=== PATIENT | female | born 1990 | race Two or more races ===

== ENCOUNTER 2020-10-04 11:03 | Emergency (ER) | payer SELFPAY ==
[2020-10-04] MEDS ORDERED: Sodium Chloride 0.9% 1,000 ML IV ONE ×2 (11:27→13:57)
[2020-10-04] MEDS ORDERED: Ondansetron 4 MG/2 ML SDV IVPUSH ONE (11:27)
[2020-10-04] MEDS ORDERED: fentaNYL 50 MCG/ML SDV IVPUSH ONE (11:27)
--- NOTE | 2020-10-04 11:39 | EDM.PDOC ---
ED HPI GENERAL MEDICAL PROBLEM - General Chief Complaint: Abdominal Pain Stated Complaint: ABDOMINAL PAIN Time Seen by Provider: 10/04/20 11:04 Source of Information: Reports: Patient History Limitations: Reports: No Limitations - History of Present Illness INITIAL COMMENTS - FREE TEXT/NARRATIVE: Presents reporting acute abdominal pain since 8:49 this morning. Patient states she has had troubles with excessive abdominal gas in the past but it is usually relieved after taking Gas-X, Pepto-Bismol or chamomile tea. The patient did accomplish those measures today but her pain was not relieved. The pain is in the epigastric and left upper quadrant area radiating to the back and is accompanied by nausea. No vomiting, dysuria, fever. She does smoke cigarettes but denies any alcohol use. She states she is not sexually active and not on control. She did have a bowel movement this morning which was greenish but totally normal for her. Is otherwise healthy without chronic medical problems. abdominal Pain Score (Numeric/FACES): 10 - Related Data Allergies Allergy/AdvReac Type Severity Reaction Status Date / Time No Known Allergies Allergy Verified 10/04/20 11:14 Home Meds: Home Meds . [No Known Home Meds] 10/04/20 [History] Past Medical History - Past Health History Medical/Surgical History: Denies Medical/Surgical History - Infectious Disease History Infectious Disease History: Reports: Chicken Pox Social & Family History - Family History Family Medical History: No Pertinent Family History - Tobacco Use Tobacco Use Status *Q: Current Every Day Tobacco User Years of Tobacco use: 12 Packs/Tins Daily: 1 - Caffeine Use Caffeine Use: Reports: Energy Drinks - Recreational Drug Use Recreational Drug Use: No ED ROS GENERAL - Review of Systems Review Of Systems: Comprehensive ROS is negative, except as noted in HPI. ED EXAM, GI/ABD - Physical Exam Exam: See Below Exam Limited By: No Limitations General Appearance: Alert, No Apparent Distress Ears: Normal External Exam Nose: Normal Inspection Throat/Mouth: Normal Inspection Head: Atraumatic, Normocephalic Neck: Normal Inspection Respiratory/Chest: No Respiratory Distress, Lungs Clear, Normal Breath Sounds Cardiovascular: Normal Peripheral Pulses, Regular Rate, Rhythm, No Edema, No Murmur GI/Abdominal Exam: Soft, No Distention, Other (Tenderness epigastric and left upper quadrant) Back Exam: Normal Inspection Extremities: Normal Inspection Neurological: Alert, Oriented, Normal Cognition Psychiatric: Normal Affect, Normal Mood Skin Exam: Warm, Dry, Intact, Normal Color, No Rash Lymphatic: No Adenopathy Course - Vital Signs Last Recorded V/S: Last Vital Signs Temp 35.4 C L 10/04/20 11:14 Pulse 67 10/04/20 13:06 Resp 20 10/04/20 13:06 BP 134/76 10/04/20 13:06 Pulse Ox 100 10/04/20 13:06 - Orders/Labs/Meds Orders: Active Orders 24 hr Category Date Time Status Patient Status [ADT] Stat ADT 10/04/20 13:52 Ordered Abdomen Ltd [US] Stat Exams 10/04/20 13:50 Ordered CORONAVIRUS COVID-19 [facility] [[facility]] Stat Lab 10/04/20 13:37 Received Sodium Chloride 0.9% [Normal Saline] 1,000 ml Med 10/04/20 13:57 Ordered IV STAT Medication Orders Sodium Chloride (Normal Saline) 1,000 mls @ 999 mls/hr IV STAT ONE Stop: 10/04/20 14:57 Last Admin: 10/04/20 14:00 Dose: 999 mls/hr Documented by: NALINI Labs: Laboratory Tests 10/04/20 10/04/20 10/04/20 Range/Units 11:34 11:34 11:34 WBC 14.04 H (4.0-11.0) K/uL RBC 4.13 L (4.30-5.90) M/uL Hgb 12.1 (12.0-16.0) g/dL Hct 36.3 (36.0-46.0) % MCV 87.9 (80.0-98.0) fL MCH 29.3 (27.0-32.0) pg MCHC 33.3 (31.0-37.0) g/dL RDW Std Deviation 42.7 (28.0-62.0) fl RDW Coeff of Heather 13 (11.0-15.0) % Plt Count 389 (150-400) K/uL MPV 9.50 (7.40-12.00) fL Neut % (Auto) 76.5 (48.0-80.0) % Lymph % (Auto) 16.9 (16.0-40.0) % [place] % (Auto) 4.9 (0.0-15.0) % Eos % (Auto) 1.6 (0.0-7.0) % Baso % (Auto) 0.1 (0.0-1.5) % Neut # (Auto) 10.7 H (1.4-5.7) K/uL Lymph # (Auto) 2.4 (0.6-2.4) K/uL [place] # (Auto) 0.7 (0.0-0.8) K/uL Eos # (Auto) 0.2 (0.0-0.7) K/uL Baso # (Auto) 0.0 (0.0-0.1) K/uL Nucleated RBC % 0.0 /100WBC Nucleated RBCs # 0 K/uL Sodium 134 L (136-145) mmol/L Potassium 3.5 (3.5-5.1) mmol/L Chloride 100 (98-107) mmol/L Carbon Dioxide 13.8 L (21.0-32.0) mmol/L BUN 16 (7.0-18.0) mg/dL Creatinine 0.6 (0.6-1.0) mg/dL Est Cr Clr Drug Dosing 133.32 mL/min Estimated GFR (MDRD) > 60.0 ml/min Glucose 135 H (74-106) mg/dL Calcium 7.7 L (8.5-10.1) mg/dL Total Bilirubin 0.3 (0.2-1.0) mg/dL AST 23 (15-37) IU/L ALT 41 (14-63) IU/L Alkaline Phosphatase 60 (46-116) U/L Total Protein 7.6 (6.4-8.2) g/dL Albumin 3.4 (3.4-5.0) g/dL Globulin 4.2 H (2.6-4.0) g/dL Albumin/Globulin Ratio 0.8 L (0.9-1.6) Amylase (25-115) U/L Lipase 6603 H (73-393) U/L Urine Color Urine Appearance Urine pH (5.0-8.0) Ur Specific [place] (1.001-1.035) Urine Protein (NEGATIVE) mg/dL Urine Glucose (UA) (NEGATIVE) mg/dL Urine Ketones (NEGATIVE) mg/dL Urine Occult Blood (NEGATIVE) Urine Nitrite (NEGATIVE) Urine Bilirubin (NEGATIVE) Urine Urobilinogen (<2.0) EU/dL Ur Leukocyte Esterase (NEGATIVE) Urine RBC (0-2/HPF) Urine WBC (0-5/HPF) Ur Epithelial Cells (NONE-FEW) Urine Bacteria (NEGATIVE) Urine Mucus (NONE-MOD) Urine HCG, Qual (NEGATIVE) 10/04/20 10/04/20 10/04/20 Range/Units 11:34 12:23 12:23 WBC (4.0-11.0) K/uL RBC (4.30-5.90) M/uL Hgb (12.0-16.0) g/dL Hct (36.0-46.0) % MCV (80.0-98.0) fL MCH (27.0-32.0) pg MCHC (31.0-37.0) g/dL RDW Std Deviation (28.0-62.0) fl RDW Coeff of Heather (11.0-15.0) % Plt Count (150-400) K/uL MPV (7.40-12.00) fL Neut % (Auto) (48.0-80.0) % Lymph % (Auto) (16.0-40.0) % [place] % (Auto) (0.0-15.0) % Eos % (Auto) (0.0-7.0) % Baso % (Auto) (0.0-1.5) % Neut # (Auto) (1.4-5.7) K/uL Lymph # (Auto) (0.6-2.4) K/uL [place] # (Auto) (0.0-0.8) K/uL Eos # (Auto) (0.0-0.7) K/uL Baso # (Auto) (0.0-0.1) K/uL Nucleated RBC % /100WBC Nucleated RBCs # K/uL Sodium (136-145) mmol/L Potassium (3.5-5.1) mmol/L Chloride (98-107) mmol/L Carbon Dioxide (21.0-32.0) mmol/L BUN (7.0-18.0) mg/dL Creatinine (0.6-1.0) mg/dL Est Cr Clr Drug Dosing mL/min Estimated GFR (MDRD) ml/min Glucose (74-106) mg/dL Calcium (8.5-10.1) mg/dL Total Bilirubin (0.2-1.0) mg/dL AST (15-37) IU/L ALT (14-63) IU/L Alkaline Phosphatase (46-116) U/L Total Protein (6.4-8.2) g/dL Albumin (3.4-5.0) g/dL Globulin (2.6-4.0) g/dL Albumin/Globulin Ratio (0.9-1.6) Amylase 535 H (25-115) U/L Lipase (73-393) U/L Urine Color YELLOW Urine Appearance CLEAR Urine pH 5.5 (5.0-8.0) Ur Specific [place] 1.015 (1.001-1.035) Urine Protein NEGATIVE (NEGATIVE) mg/dL Urine Glucose (UA) NEGATIVE (NEGATIVE) mg/dL Urine Ketones NEGATIVE (NEGATIVE) mg/dL Urine Occult Blood SMALL H (NEGATIVE) Urine Nitrite NEGATIVE (NEGATIVE) Urine Bilirubin NEGATIVE (NEGATIVE) Urine Urobilinogen 0.2 (<2.0) EU/dL Ur Leukocyte Esterase NEGATIVE (NEGATIVE) Urine RBC 2-4 (0-2/HPF) Urine WBC 0-1 (0-5/HPF) Ur Epithelial Cells RARE (NONE-FEW) Urine Bacteria RARE (NEGATIVE) Urine Mucus RARE (NONE-MOD) Urine HCG, Qual NEGATIVE (NEGATIVE) Meds: Medications Generic Name Dose Route Start Last Admin Trade Name Freq PRN Reason Stop Dose Admin Sodium Chloride 1,000 mls @ 999 mls/hr 10/04/20 13:57 10/04/20 14:00 Normal Saline IV 10/04/20 14:57 999 mls/hr STAT ONE Administration Discontinued Medications Generic Name Dose Route Start Last Admin Trade Name Freq PRN Reason Stop Dose Admin Fentanyl 50 mcg 10/04/20 11:27 10/04/20 11:41 Fentanyl IVPUSH 10/04/20 11:28 50 mcg ONETIME ONE Administration Fentanyl 50 mcg 10/04/20 13:19 10/04/20 13:22 Sublimaze IVPUSH 10/04/20 13:20 50 mcg ONETIME ONE Administration Sodium Chloride 1,000 mls @ 999 mls/hr 10/04/20 11:27 10/04/20 11:41 Normal Saline IV 10/04/20 12:27 999 mls/hr .Bolus ONE Administration Ondansetron HCl 4 mg 10/04/20 11:27 10/04/20 11:41 Zofran IVPUSH 10/04/20 11:28 4 mg ONETIME ONE Administration - Re-Assessments/Exams Free Text/Narrative Re-Assessment/Exam: 10/04/20 14:06 Discussion with Jamila MERCADO for Dr. Navarrete. Lab and CT suggest acute pancreatitis. Will order another liter of saline and GB US. Patient is still having pain but is vitally stable. Will admit to IP. Departure - Departure Time of Disposition: 14:09 Disposition: Admitted As Inpatient 66 Condition: Good Clinical Impression: Acute pancreatitis Qualifiers: Pancreatitis type: unspecified pancreatitis type - Discharge Information Referrals: PCP,None [Primary Care Provider] - Forms: ED Department Discharge Sepsis Event Note (ED) - Evaluation Sepsis Screening Result: No Definite Risk - Focused Exam Vital Signs: Vital Signs Temp Pulse Resp BP Pulse Ox 10/04/20 13:06 67 20 134/76 100 10/04/20 11:14 35.4 C L 76 24 H 99 - My Orders Last 24 Hours: My Active Orders 10/04/20 13:37 CORONAVIRUS COVID-19 [facility] [[facility]] Stat 10/04/20 13:50 Abdomen Ltd [US] Stat 10/04/20 13:52 Patient Status [ADT] Stat 10/04/20 13:57 Sodium Chloride 0.9% [Normal Saline] 1,000 ml IV STAT - Assessment/Plan Last 24 Hours: My Active Orders 10/04/20 13:37 CORONAVIRUS COVID-19 [facility] [[facility]] Stat 10/04/20 13:50 Abdomen Ltd [US] Stat 10/04/20 13:52 Patient Status [ADT] Stat 10/04/20 13:57 Sodium Chloride 0.9% [Normal Saline] 1,000 ml IV STAT
[2020-10-04 12:27] LABS: BLOOD UREA NITROGEN,BUN 16 mg/dL (7.0-18.0); CHLORIDE,CL 100 mmol/L (98-107); GLUCOSE RANDOM 135 mg/dL (74-106); POTASSIUM,K 3.5 mmol/L (3.5-5.1)
[2020-10-04 13:07] LABS: CARBON DIOXIDE,CO2 13.8 mmol/L (21.0-32.0)
[2020-10-04 13:09] LABS: SODIUM,NA 134 mmol/L (136-145)
[2020-10-04] MEDS ORDERED: fentaNYL 100 MCG/2 ML SDV IVPUSH ONE (13:19)
--- NOTE | 2020-10-04 13:19 | CT ---
Indication: Left-sided abdominal pain Technique: Volumetric multidetector CT images of the abdomen and pelvis were without the administration of intravenous contrast. Comparison: None available. Findings: There is minimal dependent basilar atelectasis. The liver is mildly enlarged with minimal hepatic steatosis. The gallbladder is unremarkable without evidence of radiopaque calculus. There is no significant common biliary ductal dilatation or abrupt cut off. The spleen is normal in attenuation and size. The stomach and duodenum are grossly unremarkable. There is questionable mild nonspecific peripancreatic inflammatory change, otherwise the pancreas is preserved in attenuation. The adrenal glands are unremarkable. There is demonstration of left-sided hydronephrosis and prominence of the distal ureter without definite visualization and obstructing radiopaque calculus. There is a mild amount of stool seen throughout the colon. There is mild distal colonic diverticulosis. The appendix is unremarkable. There is no significant mesenteric, retroperitoneal, or pelvic sidewall lymph nodes. The aorta is nonaneurysmal. There is no significant atherosclerotic disease appreciated. The solid pelvic viscera are grossly unremarkable. There is no free fluid or free air. The anterior abdominal wall is intact without significant hernias. The lumbar vertebral body heights are grossly maintained in satisfactory alignment without evidence of displaced fracture, lytic or blastic lesion. Impression: Demonstration of mild peripancreatic inflammatory stranding seen adjacent to the tail of the pancreas which could represent mild pancreatitis. Correlate with history of clinical symptoms and serum laboratory values. There is mild prominence of the left-sided collecting system without evidence of radiopaque calculus. This could represent passage of a small calculus, correlate with urinalysis and clinical history. Please note that all CT scans at this facility use dose modulation, iterative reconstruction, and/or weight-based dosing when appropriate to reduce radiation dose to as low as reasonably achievable. Dictated by Anthony Heck MD @ Oct 04 2020 1:05PM Signed by Dr. Anthony Heck @ Oct 04 2020 1:17PM
--- NOTE | 2020-10-04 14:49 | US ---
INDICATION: Elevated pancreatic enzymes TECHNIQUE: Ultrasound abdomen limited. Sonographic images of the right upper quadrant were obtained using serna-scale and color Doppler images. COMPARISON: CT abdomen pelvis October 04, 2020 FINDINGS: Liver: The liver demonstrates mild hepatic steatosis.. No masses. No intrahepatic biliary dilatation. Gallbladder: The gallbladder demonstrates no pericholecystic fluid, shadowing calculus or sonographic tenderness.. Common bile duct: 1.3 mm. Pancreas: Is somewhat poorly visualized due to overlying bowel gas Right kidney: Normal in size. Normal echotexture and cortex. No masses, stones, or hydronephrosis. Vasculature: Proximal abdominal aorta and IVC are normal. IMPRESSION: Mild hepatic steatosis. Otherwise, unremarkable right upper quadrant ultrasound. Dictated by Anthony Heck MD @ Oct 04 2020 2:45PM Signed by Dr. Anthony Heck @ Oct 04 2020 2:47PM
[2020-10-04] MEDS ORDERED: Morphine 10 MG/ML Syringe IVPUSH PRN (15:07)
[2020-10-04] MEDS ORDERED: Lactated Ringers 1,000 ML IV ONE (15:07)
[2020-10-04] MEDS ORDERED: Ondansetron 4 MG Tab.DIS PO PRN (15:07)
[2020-10-04] MEDS ORDERED: Enoxaparin 40 MG/0.4 ML Syringe SUBCUT SCH (15:15)
[2020-10-05] MEDS ORDERED: Pantoprazole 40 MG Tab.CR PO SCH (09:00)
== END 2020-10-04 13:30 | disposition left against medical advice (07) ==
LOC: MW.ED 11:03 → UNDOADMIN 13:52 → MW.MS 13:52
DX: K85.90 Acute pancreatitis without necrosis or infection, unspecified (principal); F17.210 Nicotine dependence, cigarettes, uncomplicated; Z20.828 Contact with and (suspected) exposure to other viral communicable diseases
CPT/HCPCS: 36415; 74176; 76705; 80053; 80305; 80307; 81001; 81025; 82150; 83690; 85025; 87635; 96374; 96375; 96376; 99284; J2405; J3010; J7030; 99283; U0002